=== PATIENT | male | born 1990 | race African-American/Black ===

== ENCOUNTER 2019-04-08 07:38 | Emergency (ER) | payer SELFPAY ==
[2019-04-08] MEDS ORDERED: ATIVAN IV ONE ×2 (07:56→09:53)
[2019-04-08] MEDS ORDERED: NACL 0.9% 1000 ML 1,000 ML IV ONE ×3 (07:56→11:52)
--- NOTE | 2019-04-08 07:59 | Emergency Department Report ---
ED General Adult HPI - General Chief complaint: Abdominal Pain Stated complaint: STOMACH PAIN Time Seen by Provider: 04/08/19 07:52 Source: family Mode of arrival: Wheelchair Limitations: No Limitations - History of Present Illness Initial comments: 28-year-old male with no known past medical or surgical history presents to the hospital with his sister. Patient apparently came in with complaint of abdominal pain for a few hours. Sister states that patient used ecstasy several hours ago. Patient is moaning in the bed in position. He will not answer questions only repeating "stop bro" with examination attempts. He cannot articulate where he is hurting or why he is here. He is moaning and appears uncomfortable. - Related Data Home Medications Medication Instructions Recorded Confirmed Last Taken No Known Home Medications [No 04/08/19 04/08/19 Unknown Reported Home Medications] Allergies Allergy/AdvReac Type Severity Reaction Status Date / Time No Known Allergies Allergy Verified 04/08/19 07:40 ED Review of Systems ROS: Stated complaint: STOMACH PAIN Other details as noted in HPI Comment: Unobtainable due to pts medical conditions ED Past Medical Hx - Past Medical History Previous Medical History?: No - Surgical History Past Surgical History?: No - Social History Smoking Status: Never Smoker Substance Use Type: Other - Medications Home Medications: Home Medications Medication Instructions Recorded Confirmed Last Taken Type No Known Home Medications [No 04/08/19 04/08/19 Unknown History Reported Home Medications] ED Physical Exam - General Limitations: No Limitations - Other Other exam information: General: Patient moaning in position Head exam: Atraumatic, normocephalic Eyes exam: Normal appearance, pupils equal reactive to light ENT: Moist mucous membrane Neck exam: Normal inspection, full range of motion, no meningismus nontender Respiratory exam: Clear to auscultation bilateral, no wheezes, rales, crackles Cardiovascular: Tachycardic regular rhythm Abdomen: Soft, nondistended, generalized abdominal tenderness Extremity: Full range of motion normal inspection no deformity Back: Normal Inspection, full range of motion, no tenderness Neurologic: Alert, moaning, no gross motor or sensory deficit. No facial droop, speech clear but would not answer orientation questions appropriately., Psychiatric: Agitated Skin: Warm, dry, intact ED Course Vital Signs 04/08/19 04/08/19 04/08/19 07:40 08:00 08:15 Temperature 98.9 F Pulse Rate 125 H 95 H 99 H Respiratory 22 21 18 Rate Blood Pressure 112/65 104/66 131/74 Blood Pressure [Left] O2 Sat by Pulse 98 89 100 Oximetry 04/08/19 04/08/19 04/08/19 08:31 08:33 08:45 Temperature 98.9 F Pulse Rate 96 H 85 130 H Respiratory 20 13 19 Rate Blood Pressure 131/74 108/58 Blood Pressure 131/74 [Left] O2 Sat by Pulse 100 100 Oximetry 04/08/19 04/08/19 04/08/19 09:00 09:15 09:31 Temperature Pulse Rate 108 H 105 H 94 H Respiratory 21 18 14 Rate Blood Pressure 117/67 117/67 117/67 Blood Pressure [Left] O2 Sat by Pulse 100 100 100 Oximetry 04/08/19 04/08/19 04/08/19 09:45 10:01 10:15 Temperature Pulse Rate 102 H 87 87 Respiratory 25 H 24 20 Rate Blood Pressure 117/67 103/51 103/51 Blood Pressure [Left] O2 Sat by Pulse 100 100 100 Oximetry 04/08/19 04/08/19 04/08/19 10:31 10:45 11:01 Temperature Pulse Rate 88 100 H 92 H Respiratory 21 25 H 24 Rate Blood Pressure 103/51 103/51 82/35 Blood Pressure [Left] O2 Sat by Pulse 100 100 100 Oximetry 04/08/19 04/08/19 04/08/19 11:15 11:31 11:45 Temperature Pulse Rate 99 H 105 H 95 H Respiratory 23 13 17 Rate Blood Pressure 82/35 82/35 76/25 Blood Pressure [Left] O2 Sat by Pulse 99 88 99 Oximetry 04/08/19 04/08/19 04/08/19 12:00 12:15 12:30 Temperature Pulse Rate 93 H 103 H Respiratory 16 16 Rate Blood Pressure 81/29 81/29 102/51 Blood Pressure [Left] O2 Sat by Pulse 99 100 79 L Oximetry 04/08/19 04/08/19 04/08/19 12:45 13:00 13:31 Temperature Pulse Rate 96 H 90 89 Respiratory 12 10 L 19 Rate Blood Pressure 102/51 98/54 81/29 Blood Pressure [Left] O2 Sat by Pulse 99 100 100 Oximetry 04/08/19 04/08/19 14:15 14:45 Temperature Pulse Rate 94 H Respiratory 17 Rate Blood Pressure 104/56 98/54 Blood Pressure [Left] O2 Sat by Pulse 100 100 Oximetry - Reevaluation(s) Reevaluation #1: 04/08/19 15:13 Patient is currently alert and oriented 3. ED Medical Decision Making - Lab Data Result diagrams: 04/08/19 07:57 04/08/19 07:57 Lab Results 04/08/19 04/08/19 04/08/19 Range/Units 07:57 07:57 07:57 WBC 10.2 (4.5-11.0) K/mm3 RBC 5.09 H (3.65-5.03) M/mm3 Hgb 13.9 (11.8-15.2) gm/dl Hct 41.0 (35.5-45.6) % MCV 81 L (84-94) fl MCH 27 L (28-32) pg MCHC 34 (32-34) % RDW 12.8 L (13.2-15.2) % Plt Count 205 (140-440) K/mm3 Lymph % (Auto) 10.6 L (13.4-35.0) % Angelina % (Auto) 5.2 (0.0-7.3) % Eos % (Auto) 0.0 (0.0-4.3) % Baso % (Auto) 0.2 (0.0-1.8) % Lymph # 1.1 L (1.2-5.4) K/mm3 Angelina # 0.5 (0.0-0.8) K/mm3 Eos # 0.0 (0.0-0.4) K/mm3 Baso # 0.0 (0.0-0.1) K/mm3 Seg Neutrophils % 84.0 H (40.0-70.0) % Seg Neutrophils # 8.6 H (1.8-7.7) K/mm3 Sodium 130 L (137-145) mmol/L Potassium 3.7 (3.6-5.0) mmol/L Chloride 91.4 L (98-107) mmol/L Carbon Dioxide 22 (22-30) mmol/L Anion Gap 20 mmol/L BUN 14 (9-20) mg/dL Creatinine 0.9 (0.8-1.5) mg/dL Estimated GFR > 60 ml/min BUN/Creatinine Ratio 16 % Glucose 112 H (75-100) mg/dL Calcium 9.4 (8.4-10.2) mg/dL Total Bilirubin 1.30 H (0.1-1.2) mg/dL AST 26 (5-40) units/L ALT 15 (7-56) units/L Alkaline Phosphatase 68 (35-129) units/L Total Creatine Kinase 644 H (55-170) units/L Total Protein 7.9 (6.3-8.2) g/dL Albumin 4.9 (3.9-5) g/dL Albumin/Globulin Ratio 1.6 % Lipase 19 (13-60) units/L Urine Color (Yellow) Urine Turbidity (Clear) Urine pH (5.0-7.0) Ur Specific [place] (1.003-1.030) Urine Protein (Negative) mg/dL Urine Glucose (UA) (Negative) mg/dL Urine Ketones (Negative) mg/dL Urine Blood (Negative) Urine Nitrite (Negative) Ur Reducing Substances Urine Bilirubin (Negative) Urine Ictotest Urine Urobilinogen (<2.0) mg/dL Ur Leukocyte Esterase (Negative) Urine WBC (Auto) (0.0-6.0) /HPF Urine RBC (Auto) (0.0-6.0) /HPF Urine Bacteria (Auto) (Negative) /HPF Salicylates (2.8-20.0) mg/dL Urine Opiates Screen Urine Methadone Screen Acetaminophen (10.0-30.0) ug/mL Ur Barbiturates Screen Ur Phencyclidine Scrn Ur Amphetamines Screen U Benzodiazepines Scrn Urine Cocaine Screen U Marijuana (THC) Screen Drugs of Abuse Note Plasma/Serum Alcohol (0-0.07) % 04/08/19 04/08/19 04/08/19 Range/Units 07:57 07:57 07:57 WBC (4.5-11.0) K/mm3 RBC (3.65-5.03) M/mm3 Hgb (11.8-15.2) gm/dl Hct (35.5-45.6) % MCV (84-94) fl MCH (28-32) pg MCHC (32-34) % RDW (13.2-15.2) % Plt Count (140-440) K/mm3 Lymph % (Auto) (13.4-35.0) % Angelina % (Auto) (0.0-7.3) % Eos % (Auto) (0.0-4.3) % Baso % (Auto) (0.0-1.8) % Lymph # (1.2-5.4) K/mm3 Angelina # (0.0-0.8) K/mm3 Eos # (0.0-0.4) K/mm3 Baso # (0.0-0.1) K/mm3 Seg Neutrophils % (40.0-70.0) % Seg Neutrophils # (1.8-7.7) K/mm3 Sodium (137-145) mmol/L Potassium (3.6-5.0) mmol/L Chloride (98-107) mmol/L Carbon Dioxide (22-30) mmol/L Anion Gap mmol/L BUN (9-20) mg/dL Creatinine (0.8-1.5) mg/dL Estimated GFR ml/min BUN/Creatinine Ratio % Glucose (75-100) mg/dL Calcium (8.4-10.2) mg/dL Total Bilirubin (0.1-1.2) mg/dL AST (5-40) units/L ALT (7-56) units/L Alkaline Phosphatase (35-129) units/L Total Creatine Kinase (55-170) units/L Total Protein (6.3-8.2) g/dL Albumin (3.9-5) g/dL Albumin/Globulin Ratio % Lipase (13-60) units/L Urine Color (Yellow) Urine Turbidity (Clear) Urine pH (5.0-7.0) Ur Specific [place] (1.003-1.030) Urine Protein (Negative) mg/dL Urine Glucose (UA) (Negative) mg/dL Urine Ketones (Negative) mg/dL Urine Blood (Negative) Urine Nitrite (Negative) Ur Reducing Substances Urine Bilirubin (Negative) Urine Ictotest Urine Urobilinogen (<2.0) mg/dL Ur Leukocyte Esterase (Negative) Urine WBC (Auto) (0.0-6.0) /HPF Urine RBC (Auto) (0.0-6.0) /HPF Urine Bacteria (Auto) (Negative) /HPF Salicylates < 0.3 L (2.8-20.0) mg/dL Urine Opiates Screen Urine Methadone Screen Acetaminophen < 5.0 L (10.0-30.0) ug/mL Ur Barbiturates Screen Ur Phencyclidine Scrn Ur Amphetamines Screen U Benzodiazepines Scrn Urine Cocaine Screen U Marijuana (THC) Screen Drugs of Abuse Note Plasma/Serum Alcohol < 0.01 (0-0.07) % 04/08/19 04/08/19 Range/Units 08:25 08:25 WBC (4.5-11.0) K/mm3 RBC (3.65-5.03) M/mm3 Hgb (11.8-15.2) gm/dl Hct (35.5-45.6) % MCV (84-94) fl MCH (28-32) pg MCHC (32-34) % RDW (13.2-15.2) % Plt Count (140-440) K/mm3 Lymph % (Auto) (13.4-35.0) % Angelina % (Auto) (0.0-7.3) % Eos % (Auto) (0.0-4.3) % Baso % (Auto) (0.0-1.8) % Lymph # (1.2-5.4) K/mm3 Angelina # (0.0-0.8) K/mm3 Eos # (0.0-0.4) K/mm3 Baso # (0.0-0.1) K/mm3 Seg Neutrophils % (40.0-70.0) % Seg Neutrophils # (1.8-7.7) K/mm3 Sodium (137-145) mmol/L Potassium (3.6-5.0) mmol/L Chloride (98-107) mmol/L Carbon Dioxide (22-30) mmol/L Anion Gap mmol/L BUN (9-20) mg/dL Creatinine (0.8-1.5) mg/dL Estimated GFR ml/min BUN/Creatinine Ratio % Glucose (75-100) mg/dL Calcium (8.4-10.2) mg/dL Total Bilirubin (0.1-1.2) mg/dL AST (5-40) units/L ALT (7-56) units/L Alkaline Phosphatase (35-129) units/L Total Creatine Kinase (55-170) units/L Total Protein (6.3-8.2) g/dL Albumin (3.9-5) g/dL Albumin/Globulin Ratio % Lipase (13-60) units/L Urine Color Colorless (Yellow) Urine Turbidity Clear (Clear) Urine pH 7.0 (5.0-7.0) Ur Specific [place] 1.004 (1.003-1.030) Urine Protein <15 mg/dl (Negative) mg/dL Urine Glucose (UA) Neg (Negative) mg/dL Urine Ketones 20 (Negative) mg/dL Urine Blood Mod (Negative) Urine Nitrite Neg (Negative) Ur Reducing Substances Not Reportable Urine Bilirubin Neg (Negative) Urine Ictotest Not Reportable Urine Urobilinogen < 2.0 (<2.0) mg/dL Ur Leukocyte Esterase Neg (Negative) Urine WBC (Auto) < 1.0 (0.0-6.0) /HPF Urine RBC (Auto) 1.0 (0.0-6.0) /HPF Urine Bacteria (Auto) 1+ (Negative) /HPF Salicylates (2.8-20.0) mg/dL Urine Opiates Screen Presumptive negative Urine Methadone Screen Presumptive negative Acetaminophen (10.0-30.0) ug/mL Ur Barbiturates Screen Presumptive negative Ur Phencyclidine Scrn Presumptive negative Ur Amphetamines Screen Presumptive positive U Benzodiazepines Scrn Presumptive negative Urine Cocaine Screen Presumptive negative U Marijuana (THC) Screen Presumptive negative Drugs of Abuse Note Disclamer Plasma/Serum Alcohol (0-0.07) % - EKG Data -: EKG Interpreted by Vt EKG shows normal: sinus rhythm, axis (qrs 64), QRS complexes (qrsd 83), ST-T waves (no stemi) Rate: normal (99) - Medical Decision Making Patient was in the ER over 7 hours with psychosis secondary to ecstasy use. Patient required IV Ativan and slept for several hours. Patient did have transient hypotension after Ativan dosages but did respond to normal saline. Mild hyponatremia noted this also can be caused by amphetamine use. Patient received 3 total liters of normal saline. At time of discharge he is alert and oriented 3 and denies pain. Abdomen is nontender on exam. I Informed him not to use ecstasy anymore. He will be discharged into the company of his sister and friends. - Differential Diagnosis substance abuse, infection, Critical Care Time: No Critical care attestation.: If time is entered above; I have spent that time in minutes in the direct care of this critically ill patient, excluding procedure time. ED Disposition Clinical Impression: Ecstasy abuse, Psychosis, transient Disposition: DC-01 TO HOME OR SELFCARE Is pt being admited?: No Does the pt Need Aspirin: No Condition: Stable Instructions: Methamphetamine Abuse (ED) Additional Instructions: Stop ecstasy/kira/methamphetamine abuse.. Follow up with your doctor or the clinic/doctor provided. Return if symptoms worsen as indicated by your discharge instructions Referrals: JORDAN TOTH MD [Primary Care Provider] - 3-5 Days DONNIE ENG MD [Staff Physician] - 3-5 Days Time of Disposition: 15:18
[2019-04-08 08:25] LABS: Basophils % (Auto) 0.2 % (0.0-1.8); Hemoglobin 13.9 gm/dl (11.8-15.2); Lymphocytes # (Auto) 1.1 K/mm3 (1.2-5.4); Lymphocytes % (Auto) 10.6 % (13.4-35.0); Mean Corpuscular HGB Conc 34 % (32-34); Mean Corpuscular Volume 81 fl (84-94); Monocytes # (Auto) 0.5 K/mm3 (0.0-0.8); Monocytes % (Auto) 5.2 % (0.0-7.3); Platelet Count 205 K/mm3 (140-440); Red Blood Count 5.09 M/mm3 (3.65-5.03); Red Cell Distribution Width 12.8 % (13.2-15.2)
[2019-04-08 08:48] LABS: Alanine Aminotransferase 15 units/L (7-56); Albumin 4.9 g/dL (3.9-5); BUN/Creatinine Ratio 16; Blood Urea Nitrogen 14 mg/dL (9-20); Calcium 9.4 mg/dL (8.4-10.2); Hemolysis Index 26
[2019-04-08 09:29] LABS: Benzodiazepines Screen,Urine PRESUMPTIVE NEGATIVE; Cannabinoid Screen,Urine PRESUMPTIVE NEGATIVE; Cocaine Screen,Urine PRESUMPTIVE NEGATIVE; Methadone Screen,Urine PRESUMPTIVE NEGATIVE; Opiate Screen,Urine PRESUMPTIVE NEGATIVE
[2019-04-08 09:31] LABS: Bacteria,Urine 1+ /HPF (Negative); WBC,Urine < 1.0 /HPF (0.0-6.0)
[2019-04-08 09:34] LABS: Bilirubin,Urine NEG (Negative); Blood,Urine MOD (Negative); Color,Urine Colorless (Yellow); Protein,Urine <15 mg/dL mg/dL (Negative); Urobilinogen,Urine < 2.0 mg/dL (<2.0)
[2019-04-08 09:44] LABS: Amphetamine Screen,Urine PRESUMPTIVE POSITIVE
[2019-04-08 16:18] VITALS: BP 109/66
== END 2019-04-08 16:05 | disposition home or self-care (01) ==
LOC: ED 07:38
DX: F16.10 Hallucinogen abuse, uncomplicated (principal); R10.9 Unspecified abdominal pain; F09 Unspecified mental disorder due to known physiological condition
CPT/HCPCS: 36415; 80053; 80307; 81001; 82550; 83690; 85025; 93005; 93010; 96361; 96374; 96376; 99283; J2060; J7030; 80320; G0480